=== PATIENT | male | born 1965 | race Caucasian/White ===

== ENCOUNTER 2020-06-05 13:47 | Outpatient (CLI) | payer OTHER, SELFPAY ==
[2020-06-05 15:17] LABS: SARS-CoV-2 Ag Negative (Negative)
== END 2020-06-05 13:48 | disposition home or self-care (01) ==
LOC: CHSLAB 13:50
PROVIDERS: PCP Family Medicine; Visit Provider Family Medicine
DX: Z20.828 Contact with and (suspected) exposure to other viral communicable diseases (principal)
CPT/HCPCS: 87426

== ENCOUNTER 2020-06-10 13:25 | Outpatient (CLI) | payer OTHER, SELFPAY ==
[2020-06-10 14:54] LABS: SARS-CoV-2 Ag Positive (Negative)
== END 2020-06-10 13:26 | disposition home or self-care (01) ==
LOC: CHSLAB 13:27
PROVIDERS: PCP Family Medicine; Visit Provider Family Medicine
DX: U07.1 COVID-19 (principal)
CPT/HCPCS: 87426

== ENCOUNTER 2020-10-21 15:34 | Emergency (ER) | payer OTHER, SELFPAY ==
[2020-10-21] VITALS (7 sets, daily range): BP systolic 169–212; BP diastolic 92–106; PULSE 58–69; RESP 16–23; TEMP 36.4; O2SAT 96–100
--- NOTE | ~2020-10-21 | XR_ITS ---
EXAMINATION: XR chest 2V DATE: 10/21/2020 16:22 INDICATION: Midsternal chest pain radiating to the left arm. TECHNIQUE: PA and lateral views of the chest were obtained. COMPARISON: Chest radiograph dated 08/03/2017 FINDINGS: Streaky and linear opacities at the bilateral lung bases and favor atelectasis over pneumonia. No ple ural effusion or pneumothorax. The cardiomediastinal silhouette is normal. There are bridging osteoph ytes at multiple levels in the spine, consistent with diffuse idiopathic skeletal hyperostosis (DISH) . IMPRESSION: 1. Mild bibasilar streaky and linear opacities and favor atelectasis over pneumonia. Reviewed, dictated and finalized at location A. IMPRESSION: 1. Mild bibasilar streaky and linear opacities and favor atelectasis over pneum onia.
--- NOTE | 2020-10-21 15:39 | ECG_ITS ---
Measurements Intervals [place] Rate: 59 P: 27 [place]: 196 QRS: 10 QRSD: 104 T: 76 QT: 420 QTc: 417 Interpretive Statements SINUS BRADYCARDIA VOLTAGE CRITERIA FOR LVH BORDERLINE ECG Electronically Signed On 10-21-2020 16:09:15 CDT by Gregorio Lees D.O.
[2020-10-21 15:49] LABS: Basophils Absolute Auto 0.1 K/mm3 (0.0-0.1); Basophils Percent Auto 0.9 % (0.2-1.2); Eosinophils Absolute Auto 0.3 K/mm3 (0-0.3); Hematocrit 44.8 % (42.0-52.0); Hemoglobin 15.2 g/dL (14.0-18.0); Immature Granulocyte Absolute 0.04 K/mm3 (0.00-0.031); Immature Granulocyte Percent A 0.5 % (0-0.5); Lymphocytes Absolute Auto 2.21 K/mm3 (0.9-3.2); Lymphocytes Percent Auto 29.7 % (18.3-44.2); Mean Corpuscular HGB Conc 33.9 g/dl (32-36); Mean Corpuscular Volume 88.5 fl (80-100); Mean Platelet Volume 10.1 fl (7.4-10.4); Monocytes Absolute Auto 0.6 K/mm3 (0.1-0.6); Monocytes Percent Auto 7.4 % (2.6-8.5); Neutrophils Absolute Auto 4.3 K/mm3 (1.3-6.7); Neutrophils Percent Auto 57.5 % (45.5-73.1); Platelet Count Result 257 k/mm3 (150-375); Red Blood Count 5.06 M/mm3 (4.6-6.20); Red Cell Distribution Width 14.6 % (11.5-14.5); White Blood Count 7.5 K/mm3 (4.5-10.0)
[2020-10-21 16:00] LABS: INR 0.9; Prothrombin Time 12.5 Seconds (11.1-14.7)
[2020-10-21 16:01] LABS: Anion Gap 7 mmol/L (8-16); Blood Urea Nitrogen 17 mg/dL (9-20); Calcium 8.9 mg/dL (8.4-10.2); Carbon Dioxide 28 mmol/L (22-30); Chloride 104 mmol/L (98-107); Estimated CRCL calculation 89 ml/min; Estimated Glomerular Filt Rate > 60; Glucose 106 mg/dL (75-110); Partial Thromboplastin Time 24.7 SECONDS (22.3-36.8); Potassium 4.1 mmol/L (3.4-5.0); Sodium 139 mmol/L (137-145)
[2020-10-21 16:12] LABS: Troponin I 0.016 ng/mL (0.000-0.034)
--- NOTE | 2020-10-21 16:50 | ED.GENADULT ---
HPI - General Adult General Chief complaint: Recheck/Abnormal Lab/Rx Stated complaint: high blood pressure Time Seen by Provider: 10/21/20 16:29 Source: patient History of Present Illness HPI narrative: Patient is a 55 y/o male complaining intermittent chest pain starting a few days ago. He states that he had en episode 4 days ago and again yesterday. His episode yesterday lasted 4-5 hours and resolved spontaneously. He has no chest pain at this time. His chest pain was located in midsternal area and radiated to left arm. He describes his chest pain as a pressure and he rated it as 7/10 when it occurred. He also has some SOB and dizziness. He contacted his doctor and he was told to come to ED for evaluation. Related Data Home Medications Medication Instructions Recorded Confirmed citalopram mg 10/21/20 10/21/20 irbesartan-hydrochlorothiazide tablet 10/21/20 Allergies Allergy/AdvReac Type Severity Reaction Status Date / Time No Known Allergies Allergy Verified 10/21/20 16:41 Review of Systems Constitutional: Constitutional: Denies chills, Denies fever(s), Denies headache(s) and Denies weakness Eyes: Eyes: Denies blurry vision ENT: Denies headache(s) and Denies neck pain Cardiovascular: Cardiovascular: Reports chest pain and Reports dyspnea Respiratory: Respiratory: Denies cough and Reports dyspnea Gastrointestinal: Gastrointestinal: Denies abdominal pain, Denies diarrhea, Denies nausea and Denies vomiting Genitourinary: Genitourinary: Denies hematuria and Denies dysuria Musculoskeletal: Musculoskeletal: Denies back pain and Denies neck pain Neurologic: Reports dizziness, Denies headache(s) and Denies weakness [facility] Social History Social History Gender identity (if verbalized by the patient): Male Exam Const: General: no acute distress and well developed Orientation/consciousness: oriented to person, oriented to place, oriented to time and patient oriented x3 HENMT: Head: normocephalic Ears: external ears normal General nose exam: Normal external nose present Eyes: General: appearance normal, both eyes and all related structures Conjunctivae: conjunctivae normal Neck: Neck: normal visual inspection and full ROM Chest: Chest palpation & inspection: normal inspection of the chest and no tenderness Resp: Effort & Inspection: normal respiratory effort Auscultation: clear to auscultation bilaterally Cardio: Rate: regular rate Rhythm: regular rhythm GI: GI Palp: No abdominal tenderness and Yes Soft to palpation Skin: General skin exam: normal color and turgor normal Neuro: General: oriented to person, oriented to place, oriented to time and patient oriented x3 Cognition (Neuro): normal cognition Extrem: General: normal to inspection, full ROM and no pedal edema Psych: Appearance: grossly normal Mental Status: mental status grossly normal Affect: normal affect Course Reevaluation(s) Reevaluation #1: Rechecked. Patient feels fine. BP is still high. Advised patient to be admitted for further work up of chest pain. However, patient does not want to be admitted. He wants to leave AMA. He is instructed to return if his symptoms worsen. He is awake, alert and competent to make medical decision for himself. Date: 10/21/20 Time: 21:24 Vital Signs Vital signs: Vital Signs Temperature 36.4 C 10/21/20 15:36 Pulse Rate 63 10/21/20 15:36 Respiratory Rate 17 10/21/20 15:36 Blood Pressure 212/106 H 10/21/20 15:36 Pulse Oximetry 100 10/21/20 15:36 Temperature 36.4 C 10/21/20 15:36 Pulse Rate 69 10/21/20 20:29 Respiratory Rate 18 10/21/20 20:29 Blood Pressure 169/92 H 10/21/20 20:29 Pulse Oximetry 98 10/21/20 20:29 Medical Decision Making Vital Signs Vital Signs: Vital Signs Temperature 36.4 C 10/21/20 15:36 Pulse Rate 63 10/21/20 15:36 Respiratory Rate 17 10/21/20 15:36 Blood Pressure 212/106 H
--- NOTE | 2020-10-21 18:10 | PC.NURSE ---
note lab add ons per Dr. Hawley, Call to lab to add on.
[2020-10-21 18:32] LABS: D Dimer 0.39 ug/mL (<0.48)
[2020-10-21 18:38] LABS: NT Pro B Type Natriuretic Pept 97 PG/ML (5-100)
--- NOTE | 2020-10-21 18:38 | PC.NURSE ---
3 hr troponin sent to lab. Pt continues to deny chest pain. States is tired of waiting. Remains SR without ectopy via monitor.
[2020-10-21 19:08] LABS: Troponin I 0.018 ng/mL (0.000-0.034)
--- NOTE | 2020-10-21 19:11 | PC.NURSE ---
Report to THONG Lopez, to continue care.
[2020-10-21] MEDS: cloNIDine HCL 0.2 MG TABLET PO (20:25)
== END 2020-10-21 21:38 | disposition left against medical advice (07) ==
PROVIDERS: Emergency Medicine; Emergency Provider Emergency Medicine
DX: R07.9 Chest pain, unspecified (principal); I10 Essential (primary) hypertension
CPT/HCPCS: 36415; 71046; 80048; 83880; 84484; 85025; 85380; 85610; 85730; 93005; 99284; A9270

== ENCOUNTER 2021-08-01 13:30 | Emergency (ER) | payer BC, SELFPAY ==
--- NOTE | ~2021-08-01 | XR_ITS ---
EXAMINATION: XR knee LT min 4V DATE: 08/01/2021 14:11 INDICATION: Left knee pain and swelling. TECHNIQUE: 4 views of left knee were obtained. COMPARISON: Left knee radiographs 05/07/2008 FINDINGS: Bone alignment is normal. No fracture. There is mild tricompartmental osteoarthritis charac terized by tiny marginal osteophytes. No joint space narrowing. There is a moderate-sized knee joint effusion. IMPRESSION: 1. Mild left knee osteoarthritis. 2. Moderate-sized left knee joint effusion. Reviewed, dictated and finalized at location A. [employer]CTIONS ATTORNEY
[2021-08-01 13:52] VITALS: BP 167/84; PULSE 81; RESP 18; TEMP 36.6; O2SAT 99
--- NOTE | 2021-08-01 13:54 | ED.LOWEXIN ---
HPI - Extremity Injury (Lower) General Chief Complaint: Extremity Problem,Nontraumatic Stated Complaint: Lt knee pain Time Seen by Provider: 08/01/21 13:54 Source: patient, RN notes reviewed and old records reviewed Mode of arrival: ambulatory Limitations: no limitations History of Present Illness HPI Narrative: 56 year old male who presents to [facility] ambulatory with limping gait with complaints of pain to his left knee since Tuesday with no known injury. Patient reports that he has swollen bump to the lateral aspect of his left knee with pain across his distal knee radiating down the medial aspect of his lower leg. He reports that he is unable to fully bend his knee due to pain, denies any posterior knee pain. noted edema of knee in comparison to right knee. Patient denies any tingling or numbness to left leg with adequate pedal and posterior tibial pulses present to left foot. MD complaint: other (knee pain left) Onset (ago): day(s) (5) Injury: Left: knee Related Data Home Medications Medication Instructions Recorded Confirmed amlodipine 10 mg PO DAILY 08/01/21 08/01/21 bupropion HCl 150 mg PO DAILY 08/01/21 08/01/21 hydralazine 25 mg PO DAILY 08/01/21 08/01/21 isosorbide mononitrate 30 mg PO DAILY 08/01/21 08/01/21 rosuvastatin 5 mg PO DAILY 08/01/21 08/01/21 sertraline 50 mg PO DAILY 08/01/21 08/01/21 testosterone cypionate 200 mg IM WEEKLY 08/01/21 08/01/21 Allergies Allergy/AdvReac Type Severity Reaction Status Date / Time No Known Allergies Allergy Verified 08/01/21 13:43 Review of Systems Review of Systems: CONSTITUTIONAL: Denies fever, chills, or sweats. EYES: Denies visual changes, redness, or discharge. ENT: Denies rhinorrhea, congestion, sore throat, or otalgia. CARDIOVASCULAR: Denies chest pain, palpitations, or edema. RESPIRATORY: Denies cough or dyspnea. GASTROINTESTINAL: Denies abdominal pain, nausea, vomiting, or diarrhea. GENITOURINARY: Denies dysuria or hematuria. SKIN: Denies rash or itching. MUSCULOSKELETAL: Denies back pain, positive for left knee joint pain, or myalgia. NEUROLOGIC: Denies headache, numbness, or weakness. PSYCHIATRIC: Positive for history of anxiety or depression. All systems reviewed & are unremarkable except as noted in HPI and below PMFSH Past Medical History Medical History (Updated 08/01/21 @ 17:50 by Cee Hartman NP) Angina pectoris Hyperlipidemia Hypertension JADA (obstructive sleep apnea) Surgical History Surgical History (Updated 08/01/21 @ 17:51 by Cee Hartman NP) History of mandibular surgery fracture jaw History of medial meniscus repair of right knee Family History Family History (Updated 08/01/21 @ 18:01 by Cee Hartman NP) Father Heart disease Diabetes mellitus Hypertension Social History Social History (Updated 08/01/21 @ 17:51 by Cee Hartman NP) Smoking packs per day: 0.5 Smoking cigarettes per day: 10.0 Years smoked: 40 Smoking pack-years: 20.00 Smoking status: Current every day smoker Tobacco type: cigarettes Gender identity (if verbalized by the patient): Male Comments At time of signature, agree with nursing past medical, surgical, social and family history. There is no relevant family history pertinent to the presenting complaint Exam Narrative: GENERAL: Well-appearing, well-nourished, and in no acute distress. HEAD: Normocephalic, atraumatic. EYES: PERRLA and EOMI. ENT: Nares clear, no rhinorrhea or epistaxis. Mucous membranes moist. TM's normal with good light reflex, throat pink with no lesions or exudates or tonsil swelling NECK: Supple. no lymphadenopathy CHEST: Clear to auscultation. No respiratory distress. no acute dyspnea SAO2 99% on room air HEART: Regular rate and rhythm. No murmur heard. Normal peripheral pulses. ABDOMEN: Soft, nontender, nondistended, normal active bowel sounds. EXTREMITIES: Normal range of motion. No edema. Exception noted to left knee with noted swelling. d
== END 2021-08-01 14:40 | disposition home or self-care (01) ==
PROVIDERS: Emergency Provider Registered Nurse
DX: M25.462 Effusion, left knee (principal); M17.12 Unilateral primary osteoarthritis, left knee; F17.210 Nicotine dependence, cigarettes, uncomplicated; E78.5 Hyperlipidemia, unspecified; I10 Essential (primary) hypertension; G47.33 Obstructive sleep apnea (adult) (pediatric); I20.9 Angina pectoris, unspecified
CPT/HCPCS: 73564; 99213; G0463

== ENCOUNTER 2023-06-14 07:47 | Outpatient (CLI) | payer BC, SELFPAY ==
--- NOTE | 2023-06-14 07:59 | ECG_ITS ---
Measurements Intervals [place] Rate: 74 P: 35 [place]: 179 QRS: 8 QRSD: 117 T: 62 QT: 409 QTc: 454 Interpretive Statements SINUS RHYTHM MODERATE INTRAVENTRICULAR CONDUCTION DELAY [110+ ms QRS DURATION] NONSPECIFIC T-WAVE ABNORMALITY ABNORMAL ECG COMPARED TO ECG 10/21/2020 15:42:43 SINUS RHYTHM NOW PRESENT INTRAVENTRICULAR CONDUCTION DELAY NOW PRESENT T-WAVE ABNORMALITY NOW PRESENT Electronically Signed On 06-14-2023 16:59:38 GAME SHOW HOST by Dimas Blood M.D.
== END 2023-06-14 07:48 | disposition home or self-care (01) ==
LOC: ANHSURGERY 07:54
PROVIDERS: PCP Nurse Practitioner; Visit Provider Surgery
DX: Z01.818 Encounter for other preprocedural examination (principal); R94.31 Abnormal electrocardiogram [ECG] [EKG]; R93.1 Abnormal findings on diagnostic imaging of heart and coronary circulation; I10 Essential (primary) hypertension
CPT/HCPCS: 93005

== ENCOUNTER 2023-06-15 00:50 | Day surgery (SDC) | payer BC, SELFPAY ==
[2023-06-13 14:17] VITALS: BMI 38.8
--- NOTE | 2023-06-13 14:23 | PC.NURSE ---
Report to the Outpatient Waiting Room, entrance under the green pavilion located off [facility], at time _1100 on date 06/15/23_. Planned Procedure Time: _1300_. Time changes happen often and if your time is changed the preop area will call you the afternoon before. - You and your visitor will be asked to self-screen and do not enter if you have any COVID symptoms. - A mask is optional within the hospital at this time. Patients may have clear liquids (water, carbonated beverages, clear teas, apple juice) until 3 hours prior to surgery with a maximum of 20 ounces. - No food from midnight until time of surgery - Infants may have breast milk until 4 hours before surgery, formula 6 hours prior to surgery. - Children will be allowed to drink immediately following surgery. If applicable, please bring a bottle or sippy cup to assist with drinking. Juice, water, soda, and popsicles are readily available. For infants on formula, please bring formula the day of surgery. Pacifiers are allowed. Take the following medications with a SIP of water the morning of surgery: AMLODIPINE, SERTRALINE, BUPROPION DO NOT STOP ANY OF YOUR OTHER PRESCRIPTION MEDICATIONS PRIOR TO SURGERY ?EXCEPT THE FOLLOWING Medications to discontinue per physician ASA 1 WEEK, MUTIVITAMIN 06/13/23 Date to take last dose Please no make-up, nail macanese, hairspray, perfume, deodorant, or body powder the day of surgery. No jewelry (including any body piercings) or valuables the day of surgery, leave them at home. Please take a shower or bath the night before, or the morning of, surgery with an HIBICLENS antibacterial soap. Wear comfortable, loose fitting clothing. Children are encouraged to wear pajamas. - Jewelry must be removed prior to entering the operating room. Rings and piercings that are not removed may be cut off. - The hospital will not accept responsibility for valuables. - Please leave all valuables, including medications, at home the day of surgery. If you are going home after surgery, a licensed driver salesman must drive you home. - NO public transportation without another adult if you receive anesthesia. - We recommend that an adult stay with you for 24 hours following discharge. - We also recommend that you do not drive, make important decision, drink alcoholic beverages, or take any drugs that were not prescribed by your health care provider for at least 24 hours after your discharge time. For Pediatric surgeries, we recommend two adults accompany the child home. Follow any additional instructions given to you from your surgeon. If you or anyone in your household have experienced Covid symptoms in the past week, please notify your surgeon or the nurse liaison at the phone number below for possible testing. Telephone instructions given to _PATIENT__and asked if any additional questions and then verbalized understanding. Patient advised to call surgeon office or pre surgery nurse liaison [phone] if any additional questions.
[2023-06-15] VITALS (9 sets, daily range): BP systolic 151–190; BP diastolic 83–112; PULSE 65–102; RESP 14–20; TEMP 36.1–36.4; O2SAT 95–98
[2023-06-15] MEDS: LACTATED RINGERS 1,000 ML 30 ML IV CONT ×2 (10:45→12:46)
[2023-06-15] MEDS: ACETAMINOPHEN 500 MG TABLET 1000 MG PO (11:00)
[2023-06-15] MEDS: KETOROLAC 15 MG/ML VIAL (*BKC) IV PUSH (11:00)
--- NOTE | 2023-06-15 11:13 | WPDHPUPDATE1 ---
History and Physical Update Update Date/Time: 06/15/23 11:13 History and Physical has been reviewed, including an updated exam of the patient. There are NO changes in the patient's condition. Risks, benefits, and alternatives have been discussed and questions answered. Patient agrees to proceed with procedure.
[2023-06-15] MEDS: ceFAZolin 1 GM/NS 50 ML 1 GM/50 ML BAG IVPB (11:28)
--- NOTE | 2023-06-15 11:48 | WPDANESEPPF ---
Anes - Initial Pre Proc Eval Procedure: Operation Date: 06/15/23 12:00 Proposed Procedures p Open Umbilical Hernia Repair with Mesh - Sapphire Brush MD Date/Time: 06/15/23 11:48 Surgeon: Sapphire Brush MD Pre Op Diagnosis: Umbilical Hernia Patient Data Age: 58 Gender: M Height: 1.83 m Weight: 132.3 kg Last Vital Signs Temp 36.4 C L 06/15/23 11:00 Pulse 65 06/15/23 11:00 Resp 16 06/15/23 11:00 BP 160/88 H 06/15/23 11:00 Pulse Ox 98 06/15/23 11:00 O2 Del Method Room Air 06/15/23 11:00 Allergies Allergy/AdvReac Type Severity Reaction Status Date / Time No Known Allergies Allergy Verified 06/15/23 10:58 Home Medications Medication Instructions Recorded Confirmed Type amlodipine 10 mg tablet 10 mg PO DAILY 08/01/21 06/13/23 History bupropion HCl 150 mg tablet,12 hr 150 mg PO DAILY 08/01/21 06/13/23 History sustained-release hydralazine 25 mg tablet 25 mg PO DAILY 08/01/21 06/13/23 History isosorbide mononitrate 30 mg 30 mg PO DAILY 08/01/21 06/13/23 History tablet,extended release 24 hr rosuvastatin 5 mg tablet 5 mg PO DAILY 08/01/21 06/13/23 History sertraline 50 mg tablet 50 mg PO DAILY 08/01/21 06/13/23 History testosterone cypionate 200 mg/mL 200 mg IM WEEKLY 08/01/21 06/13/23 History intramuscular oil albuterol 90 mcg-budesonide 80 2 inh inhalation .prn 06/07/23 06/13/23 History mcg/actuation HFA aerosol inhaler aspirin 81 mg chewable tablet 81 mg PO DAILY 06/07/23 06/13/23 History multivitamin (One Daily 1 tablet PO DAILY 06/07/23 06/13/23 History Multivitamin tablet) Patient hx anesthesia problems: none Family hx anesthesia problems: none Results Review: All pre-operative results and documents have been reviewed as part of the pre-operative evaluation. [facility] Past Medical History Medical History Angina pectoris History of anxiety History of depression Hyperlipidemia Hypertension JADA (obstructive sleep apnea) Surgical History Surgical History History of mandibular surgery fracture jaw History of medial meniscus repair of right knee Family History Family History Father Heart disease Diabetes mellitus Hypertension Cerebrovascular accident Mother Diabetes mellitus Heart disease Social History Social History Smoking packs per day: 0.5 Smoking cigarettes per day: 10.0 Years smoked: 30 Smoking pack-years: 15.00 Smoking status: Current every day smoker Tobacco type: cigarettes Alcohol intake: never Living arrangements: with family Gender identity (if verbalized by the patient): Male Anes - Eval Final PreProcedure Day of Procedure 06/15/23 11:48 Patient weight: morbidly obese Heart: regular rate and rhythm Lungs: decreased breath sounds Airway: Mallampati scale class II Neurological: alert and oriented Last oral intake: >/= 8 hours ASA classification: III Emergent: no Anesthetic plan: proceed Anesthesia type and monitoring: general LMA and standard monitoring Results Review: All pre-operative results and documents have been reviewed as part of the pre-operative evaluation. Informed Consent: The patient's anesthetic plan and its attendant risks and benefits were discussed with the patient/family/POA. Questions were solicited and answers provided to the satisfaction of the patient/family/POA.
[2023-06-15] MEDS: ceFAZolin 2 GM/D5W 50 ML 2 GM/50 ML BAG IVPB (11:58)
[2023-06-15] MEDS: BUPIVACAINE/EPINEPHRINE 0.5% 50 ML VIAL 30 ML INFILTRATE (12:23)
--- NOTE | 2023-06-15 12:47 | W.PM.PROC2 ---
Procedure Note - Detailed Date of Procedure 06/15/23 Pre-op Diagnosis Incarcerated Umbilical Hernia Post-op Diagnosis Same Procedure Performed repair of incarcerated umbilical hernia with mesh Surgeon Sapphire Brush MD Anesthesia General Indications 58 y/o M c incarcerated umbilical hernia Findings incarcerated umbilical hernia c omentum and adjacent loop of SB Description of Procedure The patient was taken to the operating room placed in the supine position. After adequate induction of general anesthesia, the patient was prepped and draped in the normal sterile fashion. A time-out was then done to verify the patient's identity, as well as the procedure being performed. I began by localizing the area around the umbilicus. I then made a curvilinear incision in the infraumbilical fold. This was taken down to level fascia. I then was able to bluntly dissect around the umbilicus. I then carefully dissected the umbilicus off the underlying hernia sac. Once completely dissected, I excised the hernia sac. I then noted a moderate sized defect measuring approximately 3.5 cm with incarcerated omentum and an adjacent loop of small intestine. I was able to mobilize the incarcerated tissue and reduce it back into the abdominal cavity. This left an approximately 3.5 cm defect. I then placed a 6.4 cm round piece of ventralex mesh in the underlay position. This was noted to have good, wide local coverage of the defect. I then closed this defect primarily with interrupted 0 Ethibond suture over the underlay mesh repair. I then reapproximated the umbilicus to the fascia with a 3 0 Vicryl U-stitch. The subcutaneous tissue was then closed with 3 0 Vicryl suture. The skin was closed with 4 0 Monocryl subcuticular suture. Dermabond was then placed on the wound. The patient tolerated the procedure well was extubated in the operating room postop. She will be transferred to the recovery room in stable condition. Implants 6.4 cm ventralex mesh in underlay position Estimated Blood Loss 5 Drains No Packing No Pathology None sent Complications No immediate complications Condition Stable Disposition PACU [facility] Billing Surgery - Charge Forward: Surgery Billing
[2023-06-15] MEDS: LABETALOL HCL INJ 100 MG/20 ML VIAL IV PUSH ×2 (13:10→13:59)
== END 2023-06-15 14:30 | disposition home or self-care (01) ==
PROVIDERS: PCP Nurse Practitioner; Visit Provider Surgery
PROC: (CPT 49594; principal; 2023-06-15 12:00)
DX: K42.0 Umbilical hernia with obstruction, without gangrene (principal); I10 Essential (primary) hypertension; E78.5 Hyperlipidemia, unspecified; G47.33 Obstructive sleep apnea (adult) (pediatric); F32.A Depression, unspecified; F41.9 Anxiety disorder, unspecified; F17.210 Nicotine dependence, cigarettes, uncomplicated; E66.01 Morbid (severe) obesity due to excess calories; Z68.39 Body mass index [BMI] 39.0-39.9, adult; Z79.82 Long term (current) use of aspirin; Z79.51 Long term (current) use of inhaled steroids; Z79.890 Hormone replacement therapy
CPT/HCPCS: 49594; S2900; 93005; A9270; C1781; J0690; J1100; J1885; J2405; J2704; J3010; J7120

== ENCOUNTER 2023-06-20 13:51 | Emergency (ER) | payer BC, SELFPAY ==
--- NOTE | ~2023-06-20 | CT_ITS ---
EXAMINATION: CT abdomen pelvis w con DATE: 06/20/2023 16:37 INDICATION: Abdomen pain. Umbilical hernia. Recent hernia surgery on Tuesday. TECHNIQUE: Computed tomography (CT) of the abdomen and pelvis was performed with 100 cc Omnipaque 350 intravenous contrast. The dose-length product was 1614.93 mGy-cm. Automated exposure control and ite rative reconstruction technique were employed. COMPARISON: None. FINDINGS: There is a 6 mm right upper lobe nodule, image 1. There is bibasilar atelectasis. Heart siz e normal. No significant pleural or pericardial effusion. Fatty infiltration of the liver. There are gallstones. The spleen, pancreas, adrenal glands are unrem arkable. There are bilateral renal cysts. Nonobstructive bowel gas pattern. There is soft tissue flui d and gas at the umbilicus with extension into the abdomen. This may represent postoperative change, although abscess is not excluded. There is mild adjacent small bowel wall thickening. There are air-f luid levels in the small bowel, likely ileus. There is mild retroperitoneal lymphadenopathy, likely reactive. Small amount of free fluid in the pel vis. There is a nonobstructing 6 mm left renal stone. Moderate lumbar spondylosis. IMPRESSION: 1. Fluid and gas at the umbilicus extending into the abdomen, most likely postoperative change, altho ugh infection is not excluded. There is adjacent small bowel wall thickening with moderately distende d small bowel containing air-fluid levels, likely reactive ileus. 2: Right upper lobe nodule measuring 6 mm. Recommend follow-up low dose CT chest in 6 months. 3: Nonobstructing left nephrolithiasis. Reviewed, dictated and finalized at location A. RO[facility] EM[employer]Y SERVICES MANAGER IMPRESSION: 1. Fluid and gas at the umbilicus extending into the abdomen, most likely posto perative change, although infection is not excluded. There is adjacent small jarrell wel wall thickening with moderately distended small bowel containing air-fluid levels, likely reactive ileus. 2: Right upper lobe nodule measuring 6 mm. Recommend follow-up low dose CT [address] in 6 months. 3: Nonobstructing left nephrolithiasis.
[2023-06-20 14:17] VITALS: BP 176/98; PULSE 76; RESP 18; TEMP 36.6; O2SAT 99
[2023-06-20 15:01] LABS: Basophils Absolute Auto 0.1 K/mm3 (0.0-0.1); Basophils Percent Auto 0.7 % (0.2-1.2); Eosinophils Absolute Auto 0.2 K/mm3 (0-0.3); Eosinophils Percent Auto 2.2 % (0-4.4); Hematocrit 49.3 % (42.0-52.0); Hemoglobin 16.8 g/dL (14.0-18.0); Immature Granulocyte Absolute 0.04 K/mm3 (0.00-0.031); Immature Granulocyte Percent A 0.4 % (0-0.5); Lymphocytes Absolute Auto 1.75 K/mm3 (0.9-3.2); Lymphocytes Percent Auto 19.1 % (18.3-44.2); Mean Corpuscular HGB Conc 34.1 g/dl (32-36); Mean Corpuscular Hemoglobin 30.4 pg (26-34); Mean Corpuscular Volume 89.3 fl (80-100); Mean Platelet Volume 10.5 fl (7.4-10.4); Monocytes Absolute Auto 0.4 K/mm3 (0.1-0.6); Monocytes Percent Auto 4.8 % (2.6-8.5); Neutrophils Absolute Auto 6.7 K/mm3 (1.3-6.7); Neutrophils Percent Auto 72.8 % (45.5-73.1); Platelet Count Result 263 k/mm3 (150-375); Red Blood Count 5.52 M/mm3 (4.6-6.20); Red Cell Distribution Width 13.5 % (11.5-14.5); White Blood Count 9.2 K/mm3 (4.5-10.0)
[2023-06-20 15:11] LABS: Alanine Aminotransferase 44 U/L (6-50); Albumin Level 4.5 g/dL (3.5-5.1); Alkaline Phosphatase 101 U/L (38-126); Anion Gap 11 mmol/L (8-16); Aspartate Amino Transferase 38 U/L (17-59); Bilirubin,Total 0.6 mg/dL (0.2-1.3); Blood Urea Nitrogen 17 mg/dL (9-20); Calcium 9.7 mg/dL (8.4-10.2); Carbon Dioxide 25 mmol/L (22-30); Chloride 104 mmol/L (98-107); Estimated CRCL calculation 78 ml/min; Estimated Glomerular Filt Rate 57; Glucose 116 mg/dL (65-110); Lipase 53 U/L (23-300); Sodium 140 mmol/L (137-145)
--- NOTE | 2023-06-20 16:00 | ED.ABDPAIN ---
HPI - Abdominal Pain General Chief Complaint: Abdominal Pain Stated Complaint: post op abd pain Source: patient Mode of arrival: ambulatory Limitations: no limitations History of Present Illness HPI narrative: Patient is a 58 y/o male who presents to the ED with c/o abdominal pain. Patient reports he underwent surgery Friday 06/15 for umbilical hernia repair with mesh under Dr. Brush. He has had some bruising around his umbilicus and states he noticed a recurrent pain and bulge while urinating yesterday. Denies straining. He then developed pain across his upper abdomen this morning. He took a hydrocodone at 1pm with some improvement but still complains of intermittent waves of pain. He also reports nausea, denies vomiting, diarrhea, constipation, fevers. Patient contacted Dr. Brush's office and was advised to return to the ED if pain continues. Related Data Home Medications Medication Instructions Recorded Confirmed amlodipine 10 mg tablet 10 mg PO DAILY 08/01/21 06/23/23 bupropion HCl 150 mg tablet,12 hr 150 mg PO DAILY 08/01/21 06/23/23 sustained-release hydralazine 25 mg tablet 25 mg PO DAILY 08/01/21 06/23/23 isosorbide mononitrate 30 mg 30 mg PO DAILY 08/01/21 06/23/23 tablet,extended release 24 hr rosuvastatin 5 mg tablet 5 mg PO DAILY 08/01/21 06/23/23 sertraline 50 mg tablet 50 mg PO DAILY 08/01/21 06/23/23 testosterone cypionate 200 mg/mL 200 mg IM WEEKLY 08/01/21 06/23/23 intramuscular oil albuterol 90 mcg-budesonide 80 2 inh inhalation .prn 06/07/23 06/23/23 mcg/actuation HFA aerosol inhaler aspirin 81 mg chewable tablet 81 mg PO DAILY 06/07/23 06/23/23 multivitamin (One Daily 1 tablet PO DAILY 06/07/23 06/23/23 Multivitamin tablet) Allergies Allergy/AdvReac Type Severity Reaction Status Date / Time No Known Allergies Allergy Verified 06/15/23 10:58 Review of Systems Review of Systems: CONSTITUTIONAL: Denies fever, chills, or sweats. GASTROINTESTINAL: See HPI. GENITOURINARY: Denies dysuria or hematuria. All systems reviewed & are unremarkable except as noted in HPI and below PMFSH Past Medical History Medical History (Updated 06/22/23 @ 13:43 by Holly Sykes) Angina pectoris History of anxiety History of depression Hyperlipidemia Hypertension JADA (obstructive sleep apnea) Surgical History Surgical History (Updated 06/22/23 @ 13:43 by Holly Sykes) History of mandibular surgery fracture jaw History of medial meniscus repair of right knee History of umbilical hernia repair repair of incarcerated umbilical hernia with mesh 06/15/23 PDC Family History Family History Father Heart disease Diabetes mellitus Hypertension Cerebrovascular accident Mother Diabetes mellitus Heart disease Social History Social History Smoking packs per day: 0.5 Smoking cigarettes per day: 10.0 Years smoked: 30 Smoking pack-years: 15.00 Smoking status: Current every day smoker Tobacco type: cigarettes Alcohol intake: never Living arrangements: with family Gender identity (if verbalized by the patient): Male Exam Narrative: GENERAL: Well appearing, obese with BMI of 39.2, non-toxic, in no acute distress. HEAD: Normocephalic, atraumatic. RESPIRATORY: Airway patent, respirations nonlabored. Clear to auscultation bilaterally, no rales, rhonchi, wheezing. CARDIOVASCULAR: Regular rate and rhythm without murmurs, rubs, or gallops. ABDOMINAL: Abdomen is somewhat tense, but still soft. Focal tenderness in right upper quadrant and epigastric region. Tenderness surrounding umbilicus with hernia bulge protruding from umbilicus. The sutures appear intact, no evidence of dehiscence. Yellow and purple ecchymosis surrounding the umbilical region. Normoactive BS. MUSCULOSKELETAL: Moves all extremities. No gross deformities. SKIN: Warm, dry, norm
[2023-06-20 16:10] VITALS: BP 177/87; PULSE 83; RESP 18; TEMP 36.6; O2SAT 98
[2023-06-20] MEDS: ONDANSETRON HCL ODT 4 MG TABLET PO (16:14)
--- NOTE | 2023-06-20 18:09 | PC.NURSE ---
Pt to the intake desk and states that he doesn't want to wait any longer. States he is going to rest at home. IV taken out and pt walk out with a steady gait
== END 2023-06-20 18:09 | disposition left against medical advice (07) ==
PROVIDERS: Emergency Medicine; Emergency Provider Physician Assistant; PCP Surgery
DX: R10.9 Unspecified abdominal pain (principal); F41.9 Anxiety disorder, unspecified; F32.A Depression, unspecified; I10 Essential (primary) hypertension; G47.30 Sleep apnea, unspecified
CPT/HCPCS: 36415; 74177; 80053; 83690; 85025; 99284; A9270; Q9967

== ENCOUNTER 2023-06-27 01:25 | Inpatient (IN) | payer BC, SELFPAY ==
[2023-06-27] VITALS (8 sets, daily range): BP systolic 95–146; BP diastolic 55–78; PULSE 78–88; RESP 15–20; TEMP 36.3–37; O2SAT 93–100; BMI 39.3
--- NOTE | ~2023-06-27 | US_ITS ---
US renal BI 06/28/2023 09:27 Procedure: Realtime transabdominal ultrasound of the kidneys and bladder. Indication: Elevated creatinine Comparison: No prior studies for comparison. Findings: Renal echotexture is normal bilaterally without hydronephrosis, contour deforming mass or r enal calculus. The right kidney measures 11.2 cm and left kidney measures 10.8 cm. Bladder within no rmal limits. There is fatty infiltration of the liver. There are left renal cysts, largest measuring 6.4 cm. Impression: 1: Left renal cyst measuring up to 6.4 cm. 2: Fatty infiltration of the liver. Reviewed, dictated and finalized at location L. IAGE RIDER Impression: 1: Left renal cyst measuring up to 6.4 cm. 2: Fatty infiltration of the liver.
--- NOTE | ~2023-06-27 | CT_ITS ---
EXAMINATION: CT abdomen pelvis wo con DATE: 06/27/2023 04:27 INDICATION: Nausea, vomiting, diarrhea. Bowel obstruction, hernia repair on 06/15/2023. TECHNIQUE: Computed tomography (CT) of the abdomen and pelvis was performed with 100 CC Omnipaque 350 intravenous contrast. Automated exposure control and iterative reconstruction technique were employe d. Exam dose: 1385.28 mGy-cm total exam DLP. COMPARISON: 06/20/2023 CT abdomen pelvis FINDINGS: There is mild discoid atelectasis at the lingula and both lower lobes. Normal heart size. No pericardial or pleural effusion. Multiple small stones are noted in the dependent aspect of the gallbladder. No gallbladder wall thick ening or pericholecystic fluid or fat stranding is detected. No bile duct or pancreatic duct dilatati on. No pancreatic mass lesion. Normal splenic size. Normal morphology of the adrenal glands. Approximately 1.5 cm right renal cyst 4.5 and 6.5 cm left renal cysts. Approximately 6 mm lower pole nonobstructing left renal calculus with attenuation of [address] nits. No other urinary tract calculus or hydroureteronephrosis. The urinary bladder is evacuated. Moderate prostate enlargement and mild prostate calcification. Normal caliber of the abdominal aorta. No intraperitoneal or retroperitoneal or pelvic mass lesion or adenopathy or ascites is detected. Diverticulosis of the colon; no CT evidence of diverticulitis. There are air-fluid levels of the small and large bowel, with proximal to mid small bowel dilatation up to 3.5 cm diameter. Again noted is prominent to 4 cm wide, 4.1 cm anteroposterior and 4.5 cm vertical dimension soft tiss ue thickening in the periumbilical region, with some subtle associated subcutaneous gas, which may re present postoperative hematoma, seroma and/or abscess, with some surrounding fat stranding. The keila ns of this soft tissue thickening are better defined in their is not as much fat stranding around thi s area compared to 06/20/2023, suggesting mild interval improvement. IMPRESSION: Minimal improvement of soft tissue thickening, air collections and surrounding fat stran ding in the postoperative periumbilical area Mild small bowel dilatation and air-fluid levels of the small and large bowel, possibly due to postop erative adynamic ileus Cholelithiasis Bilateral renal cysts Nonobstructive 6 mm lower pole left renal calculus Moderate prostate enlargement and calcification Diverticulosis of the colon Reviewed, dictated and finalized at Location [facility]. Reviewed, dictated and finalized at location A. AY CAR REPAIRER IMPRESSION: Minimal improvement of soft tissue thickening, air collections and surrounding fat stranding in the postoperative periumbilical area Mild small bowel dilatation and air-fluid levels of the small and large bowel, possibly due to postoperative adynamic ileus Cholelithiasis Bilateral renal cysts Nonobstructive 6 mm lower pole left renal calculus Moderate prostate enlargement and calcification Diverticulosis of the colon
--- NOTE | ~2023-06-27 | XR_ITS ---
XR abdomen gastric tube insert DATE: 06/27/2023 09:48 INDICATION: NG tube placement TECHNIQUE: Portable AP view on 06/27/2023 at 0907 hours COMPARISON: None FINDINGS: An NG tube is noted with the distal tip extending only approximately 1-2 cm distal to the d iaphragmatic hiatus into the very proximal stomach. Tube advancement is recommended. Bibasilar discoid atelectasis or scarring. Heart size appears within normal range. Degenerative change of the thoracic and lumbar spine. IMPRESSION: NG tube in very proximal aspect of the stomach, only 1-2 cm distal to the diaphragmatic h iatus; tube advancement is recommended Reviewed, dictated and finalized at Location [facility]. Reviewed, dictated and finalized at location A. PHONE DIRECTORY DISTRIBUTOR DRIVER IMPRESSION: NG tube in very proximal aspect of the stomach, only 1-2 cm distal to the diaphragmatic hiatus; tube advancement is recommended
[2023-06-27 03:28] LABS: Basophils Absolute Auto 0.1 K/mm3 (0.0-0.1); Basophils Percent Auto 1.2 % (0.2-1.2); Eosinophils Absolute Auto 0.1 K/mm3 (0-0.3); Hematocrit 49.6 % (42.0-52.0); Hemoglobin 17.1 g/dL (14.0-18.0); Immature Granulocyte Absolute 0.17 K/mm3 (0.00-0.031); Immature Granulocyte Percent A 1.6 % (0-0.5); Lymphocytes Percent Auto 19.7 % (18.3-44.2); Mean Corpuscular HGB Conc 34.5 g/dl (32-36); Mean Corpuscular Hemoglobin 30.1 pg (26-34); Mean Corpuscular Volume 87.3 fl (80-100); Mean Platelet Volume 10.8 fl (7.4-10.4); Monocytes Absolute Auto 1.2 K/mm3 (0.1-0.6); Monocytes Percent Auto 11.3 % (2.6-8.5); Neutrophils Percent Auto 65.2 % (45.5-73.1); Platelet Count Result 365 k/mm3 (150-375); Red Blood Count 5.68 M/mm3 (4.6-6.20); Red Cell Distribution Width 13.2 % (11.5-14.5); White Blood Count 10.7 K/mm3 (4.5-10.0)
[2023-06-27] MEDS: ONDANSETRON INJ 4 MG/2 ML VIAL IV PUSH (03:32)
[2023-06-27 03:50] LABS: Alanine Aminotransferase 82 U/L (6-50); Albumin Level 4.8 g/dL (3.5-5.1); Alkaline Phosphatase 115 U/L (38-126); Anion Gap 24 mmol/L (8-16); Aspartate Amino Transferase 46 U/L (17-59); Bilirubin,Total 0.9 mg/dL (0.2-1.3); Blood Urea Nitrogen 74 mg/dL (9-20); Calcium 9.1 mg/dL (8.4-10.2); Carbon Dioxide 24 mmol/L (22-30); Chloride 85 mmol/L (98-107); Estimated CRCL calculation 16 ml/min; Estimated Glomerular Filt Rate 9; Glucose 151 mg/dL (65-110); Lipase 103 U/L (23-300); Potassium 2.9 mmol/L (3.4-5.0); Sodium 133 mmol/L (137-145)
--- NOTE | 2023-06-27 04:00 | ED.NAVMDI ---
HPI - Nausea/Vomiting/Diarrhea General Chief complaint: Nausea/Vomiting/Diarrhea Stated complaint: n/v/d post op Time Seen by Provider: 06/27/23 03:52 Source: patient and family () Limitations: no limitations History of Present Illness HPI Narrative: 58-year-old male umbilical hernia repair 06/15/[address] Brush presents with nausea vomiting, and diarrhea. Patient noted he was constipated after surgery. He did use stool softener several times this did not produce bowel movement. the son a after surgery, patient was urinating when he looked down and noted that the site was spontaneously protruding. He denies that there is any preceding intra-abdominal pressure such as strain to void or stool. he reached out to his surgeon's partner, Dr. Manning and a follow up appointment was made. patient notes that on Tuesday he did present to the emergency department due to continued abdominal pain and constipation. He notes that he waited in the emergency department for several hours ultimately left without being with seen. he did have a follow-up appointment with Dr. Brush on Tuesday who felt that the protrusion is fluid filled and otherwise benign. Later in the evening on Tuesday patient started having diarrhea. He trialed Imodium AD without any change in his diarrhea. He then started having nausea and vomiting. Related Data Home Medications Medication Instructions Recorded Confirmed amlodipine 10 mg tablet 10 mg PO DAILY 08/01/21 06/27/23 hydralazine 25 mg tablet 50 mg PO TID 08/01/21 06/27/23 isosorbide mononitrate 30 mg 60 mg PO DAILY 08/01/21 06/27/23 tablet,extended release 24 hr sertraline 50 mg tablet 50 mg PO DAILY 08/01/21 06/27/23 albuterol 90 mcg-budesonide 80 2 inh inhalation Q6H PRN Shortness 06/07/23 06/27/23 mcg/actuation HFA aerosol inhaler Of Breath Or Wheezing aspirin 81 mg chewable tablet 81 mg PO DAILY 06/07/23 06/27/23 fluticasone propionate 115 2 puff inhalation Q12H 06/27/23 06/27/23 mcg-salmeterol 21 mcg/actuation HFA inhaler (Advair HFA) furosemide 40 mg tablet 40 mg PO BID 06/27/23 06/27/23 hydrochlorothiazide 25 mg tablet 25 mg PO DAILY 06/27/23 06/27/23 losartan 50 mg tablet 50 mg PO DAILY 06/27/23 06/27/23 pravastatin 80 mg tablet 80 mg PO HS 06/27/23 06/27/23 testosterone cypionate 200 mg/mL 100 mg IM WEEKLY 06/27/23 06/27/23 intramuscular oil Allergies Allergy/AdvReac Type Severity Reaction Status Date / Time No Known Allergies Allergy Verified 06/15/23 10:58 [facility] Past Medical History Medical History (Updated 06/27/23 @ 18:08 by Kisha Peralta MD) Angina pectoris History of anxiety History of depression Hyperlipidemia Hypertension Low testosterone in male JADA (obstructive sleep apnea) Tobacco abuse Surgical History Surgical History History of mandibular surgery fracture jaw History of medial meniscus repair of right knee History of umbilical hernia repair repair of incarcerated umbilical hernia with mesh 06/15/23 PDC Family History Family History Father Heart disease Diabetes mellitus Hypertension Cerebrovascular accident Mother Diabetes mellitus Heart disease Social History Social History (Updated 06/27/23 @ 12:57 by Romain Baugh MD) Social History: He smokes half a pack a day and has done so for about 40 years. No alcohol or drug use. He lives with his and 2 children. They have 2 dogs. He is a full code. He nominates his to be the individual who would make medical decisions for him if he is unable. Smoking packs per day: 0.5 Smoking cigarettes per day: 10.0 Years smoked: 30 Smoking pack-years: 15.00 Smoking status: Former smoker Smoking end date: 06/15/23 Alcohol intake: never Do You Feel Safe in your Home?: Yes Lack of Transportation: No Lack of Food: Never True Current Housing: [facility]
[2023-06-27] MEDS: PROCHLORPERAZINE EDISYLATE 10 MG/2 ML VIAL IV PUSH (05:58)
[2023-06-27] MEDS: SODIUM CHLORIDE 0.9% IV 1,000 ML 999 ML IV CONT (07:43)
[2023-06-27 08:01] LABS: Magnesium 2.3 mg/dL (1.6-2.3)
--- NOTE | 2023-06-27 09:05 | PC.NURSE ---
NG tube inserted without difficulty. Pt tolerated well, placement verified with asculation & Xray
--- NOTE | 2023-06-27 09:10 | PC.NURSE ---
Dr. Marcelo here to see pt. Discussed plan of care. Pt agrreable
--- NOTE | 2023-06-27 09:25 | PM.CNNEP ---
Assessment and Plan Assessment and plan (1) Acute renal failure: Code(s): N17.9 - Acute kidney failure, unspecified Status: Acute Assessment and Plan: the patient has acute kidney injury. His baseline creatinine was almost 1 and now it is above 6. He has had nausea vomiting and some liquid stools over the last few days. He has not been able to take anything in. Most likely he is dehydrated. in addition his blood pressure was low when he came in and generally runs high in the 150-180 range. So relative / actual hypotension is certainly an issue. it is remotely possible that he had some sort of issue with his kidney and now with the high BUN and creatinine it is causing nausea and vomiting but I think it is more likely the former idea. Patient could have obstruction as well so will get a renal ultrasound. Other issues such as glomerulonephritis are less likely Will get urine electrolytes, CPK, renal ultrasound, and give him IV fluids. Because his sodium is 133 will give isotonic fluid. His potassium is low as well. Will give potassium supplements. (2) Nausea and vomiting: Code(s): R11.2 - Nausea with vomiting, unspecified Status: Acute Assessment and Plan: Evaluation is underway. The emergency room doctor suspected obstruction or ileus (3) Hypertension: Code(s): I10 - Essential (primary) hypertension Status: Acute Assessment and Plan: blood pressure is soft. Will hold blood pressure meds (4) Hyperlipidemia: Code(s): E78.5 - Hyperlipidemia, unspecified Status: Acute Assessment and Plan: he is on rosuvastatin (5) JADA (obstructive sleep apnea): Code(s): G47.33 - Obstructive sleep apnea (adult) (pediatric) Status: Acute History of Present Illness Reason for Consult Consult date: 06/27/23 Chief Complaint Chief complaint: Hypokalemia,Acute Renal Failure,Post op Ileus History of Present Illness Narrative: Riley is a very pleasant 58-year-old gentleman who has multiple medical problems including hypertension, hyperlipidemia, depression, anxiety, sleep apnea, angina pectoris. Patient recently had repair of an umbilical hernia. This was performed on the . Over the last few days the patient is developed nausea and vomiting. every time he has something to drink he either throws it up or it goes right through . He has not been eating very well at all. He has been taking his medications. He does have some abdominal discomfort. No bloody stool or bloody vomitus . no fevers or chills. No chest pain or shortness of breath. No swelling. Review of Systems Constitutional: Constitutional: Reports no additional constitutional complaints Eyes: Eyes: Reports no additional eye complaints ENT: Reports system reviewed and no additional complaints, except as documented Cardiovascular: Cardiovascular: Reports no additional cardiovascular complaints Respiratory: Respiratory: Reports no additional respiratory complaints Gastrointestinal: Gastrointestinal: Reports no additional gastrointestinal complaints Genitourinary: Genitourinary: Reports no additional male genitourinary complaints Musculoskeletal: Musculoskeletal: Reports no additional musculoskeletal complaints Integumentary/Breasts: Skin/Breast: Reports system reviewed and no additional complaints, except as docu Neurologic: Reports system reviewed and no additional complaints, except as documented Psychiatric: Psychiatric: Reports no additional psychiatric complaints Endocrine: Endocrine: Reports no additional endocrine complaints PMFSH Past Medical History Medical History Angina pectoris History of anxiety History of depression Hyperlipidemia Hypertension JADA (obstructive sleep apnea) Surgical History Surgical History History of man
--- NOTE | 2023-06-27 09:37 | ADMGEN ---
This patient, Riley Vela, was admitted to 3 [facility] Surg Room 312-01. Patient/family oriented to hospital policies and general routines including ID bracelet, bed and alarms, visiting hours, pain management, procedures, bathroom and other care routines, personal items, smoking policy, room service/diet, and visiting hours. Information on how to activate the Rapid Response Team has been discussed. Patient/Family are encouraged to report perceived risks to care and to ask questions if they do not understand what they are told or what they should do.
[2023-06-27] MEDS: POTASSIUM CHLORIDE INJ 40 MEQ in SODIUM CHLORIDE 0.9% IV 500 ML 130 MEQ IVPB ×2 (10:08→20:27)
[2023-06-27] MEDS: DEXTROSE 5%/0.9% SOD CHL 1,000 ML 125 ML IV CONT ×2 (10:08→20:39)
--- NOTE | 2023-06-27 10:21 | PC.NURSE ---
NG tube advanced up to 65 from 60 per radiologist recommendations. Suction started on low intermittent.
[2023-06-27 11:31] LABS: Lactic Acid Reflex 1.3 mmol/L (0.7-2.0)
[2023-06-27 11:36] LABS: Creatine Kinase 416 U/L (55-170)
--- NOTE | 2023-06-27 11:37 | WPDCN ---
Assessment and Plan Assessment and plan (1) Acute renal failure: Code(s): N17.9 - Acute kidney failure, unspecified Status: Acute Assessment and Plan: Patient has acute renal failure with a creatinine 6.5. This is due to his nausea vomiting and volume contraction and dehydration. Nephrology consult has been ordered. Dr. Marcelo will manage his renal condition and places potassium as it is very low. (2) Ileus: Code(s): K56.7 - Ileus, unspecified Status: Acute Assessment and Plan: Patient had open incarcerated ventral hernia repair 2 weeks ago with mesh. He appears to have a hematoma in the wound but no infection of the hematoma. No evidence of bowel obstruction recurrent hernia. Supportive management with nasogastric decompression. Output from the nasogastric tube is bilious. Keep him NPO for now. Up in chair as much as possible. No acute surgical abdomen at this time (3) Wound hematoma: Status: Acute Assessment and Plan: Periumbilical region has a wound hematoma. Is not currently draining. There is no cellulitis associated with a hematoma at this time. Continue to monitor HPI Data of Consult Date/Time: 06/27/23 11:37 Requesting Physician: Get Baugh MD Primary Care Provider: Molly Barba, NIGHT AUDITOR Consult Narrative Reason for consult: Nausea vomiting and small-bowel ileus Narrative: Riley Vela is a 58 year old male who had a open periumbilical incarcerated ventral hernia repair with Ventralex mesh performed by Dr. Brush June 15, 2022. On June 22, 2022 the patient was seen in the office by Dr. Brush and appeared he likely had a hematoma and informed in the wound. Did not appear to be infected at that time. CT scan was done confirming that the fascia and mesh was intact was reached no recurrent hernia. Patient was having some nausea that time but no emesis. Was sent home from the office the continued to have nausea and vomiting over the course of last several days. He presented to the emergency room last evening with complaints of continued nausea vomiting increasing abdominal distention and pain. CT scan abdomen pelvis was again done showing essentially stable soft tissue mass in the area the hernia repair but no evidence of recurrent hernia. So redness to the skin but quite a bit of bruising. Creatinine was about 6.5 consistent with acute renal failure likely due to volume depletion and dehydration. Nasogastric tube was placed decompress the stomach was admitted to the medical floor for management of acute renal failure. Dr. Marcelo from the nephrology service has evaluated the patient. Patient very low potassium level 2.9 due to his frequent emesis. Dr. Marcelo is ordered potassium replacement. In speaking with the patient's morning he was better with a nasogastric tube in place. The output from the nasogastric tube is bilious. He is on some diffuse anal pain but no severe abdominal pain. He has not had any bowel movements in a few days. White blood cell count just slightly elevated 10,700. He is afebrile. Magnesium level was normal as well. Lactic acid level is normal. Review of Systems Review of Systems: The remainder of the review of systems to include constitutional, HEENT, cardiovascular, respiratory, GI, , integumentary, musculoskeletal, endocrine, immunologic, hematologic, psychiatric, and neurologic are all negative except for which is mentioned above in the HPI. [facility] Past Medical History Medical History Angina pectoris History of anxiety History of depression Hyperlipidemia Hypertension JADA (obstructive sleep apnea) Surgical History Surgical History History of mandibular surgery fracture jaw History of medial meniscus repair of right knee History of umbilical hernia repair repair of incarcerated umbilical
--- NOTE | 2023-06-27 12:41 | PM.IMHP ---
H&P: HPI History of Present Illness Date/Time: 06/27/23 12:41 Chief Complaint: Nausea, vomiting and diarrhea Narrative: 58yo male with HTN, HLD, JADA and tobacco abuse here for nausea, vomiting and diarrhea. Patient noted over the summer increasing bulging from his umbilicus. He was evaluated by General surgery who felt the patient had incarcerated umbilical hernia. Patient underwent repair of incarcerated umbilical hernia with mesh on 06/15/2023. He tolerated the procedure well however he developed worsening abdominal pain. He presented to the emergency room on 06/20/2023 after noting recurrent bulging around the umbilicus while urinating. He denies that he was straining. He states his abdominal pain was significant rating it as 8-9/10. CT of the abdomen pelvis showed fluid and gas at the umbilicus extending into the abdomen most likely postoperative changes. There was adjacent small bowel wall thickening with moderately distended small bowel with air-fluid levels likely ileus. Patient was discharged home and followed up Dr. Brush on 06/22/2023. He was still having constant sharp abdominal pain with nausea. He began to have watery stools. Over the next few days his condition has worsened. He is now having vomiting with bilious emesis. No melena, hematochezia or hematemesis. He is having 7-9 bowel movements per day. He has been trying to drink fluids but is unable to tolerate this due to the nausea and vomiting. There has been no recent travel. No sick contacts. Not exposed to farm animals. No fever, chills, shortness of breath, cough, chest pain, palpitations, dysuria or hematuria. He has had decreasing urine output over the past week. No foamy urine. He has not been able to take his medications because of the nausea and vomiting. He felt dizzy this morning with blurred vision. He presented to the emergency room because of worsening symptoms. In the emergency room, blood pressure was soft at 95/57. White count was 10.7K with hemoglobin 17. Sodium is 133 with potassium 2.9. His serum bicarb was normal but he had an anion gap of 24. His BUN was 74 and creatinine 6.5. His renal function 1 week ago was BUN 17 and creatinine 1.3. Glucose was 151. Lactic acid was 1.3. LFTs are normal except for ALT 82 and total protein of 9. Lipase was normal. Total CK was 416. CT of the abdomen pelvis showed minimal improvement of the soft tissue thickening, air collection and surrounding fat stranding in the postoperative periumbilical area. Continues have a mild small bowel dilatation and air-fluid levels in the small and large bowel consistent with ileus. Cholelithiasis, bilateral renal cysts and non obstructive 6 mm left renal calculi noted. He has moderate prostate enlargement although he denies that he has BPH. Diverticulosis of the colon noted. He was given Zofran and Compazine. Started on IV fluids. Nephrology was consulted. General surgery was consulted as well. NG tube was placed. Patient states his abdominal pain is improved since NG tube is placed. He is actually requesting discharge. He was admitted for further care. Review of Systems Review of Systems: All systems reviewed & are unremarkable except as noted in HPI and below PMFSH Past Medical History Medical History (Updated 06/27/23 @ 13:11 by Romain Baugh MD) Angina pectoris History of anxiety History of depression Hyperlipidemia Hypertension Low testosterone in male JADA (obstructive sleep apnea) Tobacco abuse Surgical History Surgical History History of mandibular surgery fracture jaw History of medial meniscus repair of right knee History of umbilical hernia repair repair of incarcerated umbilical hernia with mesh 06/15/23 PDC Family History Family History Father Heart disease Diabetes mellitus Hypertension Cerebrovascular accident M
[2023-06-27 13:18] LABS: Total Protein Urine Random 63 mg/dL
[2023-06-27 13:28] LABS: Appearance Urine Turbid (Clear); Bacteria Urine None Seen /hpf; Bilirubin Urine 2+ (Negative); Blood Urine Negative (Negative); Color Urine Dark Yellow (Yellow); Glucose Urine UA Negative (Negative); Hyaline Casts Urine Present /lpf; Ketones Urine Trace mg/dL (Negative); Leukocyte Esterase Ur Negative LEU/UL (Negative); Need Manual Microscopic Reviewed; Nitrate Urine Negative (Negative); Non Pathogenic Casts >20; Protein Urine 2+ mg/dL (Negative); RBC Urine 0-2 /hpf (0-2); Squamous Epithelial Cell Urine Many /hpf (Few)
[2023-06-27 13:29] LABS: Add Urine Microscopic? YES
[2023-06-27] MEDS: MORPHINE SULFATE (*CRX) 2 MG/ML INJ IV PUSH (14:04)
[2023-06-27 14:49] LABS: Eosinophil Urine None Seen % (None Seen); Urine Eos QC 2nd Tech Confirmed
[2023-06-27 14:58] LABS: Creatinine Urine 394.1 mg/dL; Sodium Urine Random 23 meq/L; Ur Ttl Prot Creatinine Ratio 0.16 mg/mg (0-0.20)
[2023-06-27 17:10] LABS: SARS-CoV-2 RNA PCR Negative (Negative)
[2023-06-27 18:51] LABS: Anion Gap 17 mmol/L (8-16); Blood Urea Nitrogen 89 mg/dL (9-20); Calcium 8.3 mg/dL (8.4-10.2); Carbon Dioxide 28 mmol/L (22-30); Chloride 89 mmol/L (98-107); Glucose 115 mg/dL (65-110); Sodium 134 mmol/L (137-145)
[2023-06-27 18:56] LABS: Estimated CRCL calculation 18 ml/min; Estimated Glomerular Filt Rate 10
[2023-06-27] MEDS: FLUTICASONE/SALMETEROL 115-21 MCG INHALER 1 PUFF 2 PUFF INHALATION (19:30)
[2023-06-27] MEDS: PANTOPRAZOLE SODIUM IV 40 MG VIAL IV PUSH (20:27)
[2023-06-27] MEDS: SODIUM CHLORIDE 0.9% INJ 10 ML (20:27)
[2023-06-28 06:00] VITALS: BP 117/89; PULSE 79; RESP 18; TEMP 36.9; O2SAT 98
[2023-06-28] MEDS: PANTOPRAZOLE SODIUM IV 40 MG VIAL IV PUSH ×2 (08:02→20:46)
[2023-06-28] MEDS: FLUTICASONE/SALMETEROL 115-21 MCG INHALER 1 PUFF 2 PUFF INHALATION ×2 (08:49→19:35)
[2023-06-28 09:08] LABS: Basophils Absolute Auto 0.1 K/mm3 (0.0-0.1); Basophils Percent Auto 0.9 % (0.2-1.2); Eosinophils Absolute Auto 0.2 K/mm3 (0-0.3); Eosinophils Percent Auto 2.6 % (0-4.4); Hematocrit 46.1 % (42.0-52.0); Hemoglobin 15.7 g/dL (14.0-18.0); Immature Granulocyte Absolute 0.15 K/mm3 (0.00-0.031); Immature Granulocyte Percent A 1.9 % (0-0.5); Lymphocytes Absolute Auto 1.36 K/mm3 (0.9-3.2); Lymphocytes Percent Auto 16.8 % (18.3-44.2); Mean Corpuscular HGB Conc 34.1 g/dl (32-36); Mean Corpuscular Hemoglobin 30.2 pg (26-34); Mean Corpuscular Volume 88.7 fl (80-100); Mean Platelet Volume 10.7 fl (7.4-10.4); Monocytes Absolute Auto 0.7 K/mm3 (0.1-0.6); Monocytes Percent Auto 9.1 % (2.6-8.5); Neutrophils Absolute Auto 5.6 K/mm3 (1.3-6.7); Neutrophils Percent Auto 68.7 % (45.5-73.1); Platelet Count Result 253 k/mm3 (150-375); Red Cell Distribution Width 13.2 % (11.5-14.5); White Blood Count 8.1 K/mm3 (4.5-10.0)
[2023-06-28 09:28] LABS: Albumin Level 3.9 g/dL (3.5-5.1); Anion Gap 14 mmol/L (8-16); Blood Urea Nitrogen 73 mg/dL (9-20); Calcium 8.3 mg/dL (8.4-10.2); Carbon Dioxide 26 mmol/L (22-30); Chloride 96 mmol/L (98-107); Estimated CRCL calculation 34 ml/min; Estimated Glomerular Filt Rate 21; Glucose 119 mg/dL (65-110); Phosphorus 3.5 mg/dL (2.5-4.5); Potassium 2.9 mmol/L (3.4-5.0); Sodium 136 mmol/L (137-145)
[2023-06-28] MEDS: DEXTROSE 5%/0.9% SOD CHL 1,000 ML 125 ML IV CONT ×2 (10:34→20:47)
[2023-06-28 14:00] VITALS: BP 141/80; PULSE 76; RESP 14; TEMP 36.8; O2SAT 100
--- NOTE | 2023-06-28 14:17 | PM.PNGS ---
Progress Note: A&P Assessment and Plan (1) Wound hematoma: Status: Acute Assessment and Plan: doing well, no s/s infection, cont local wound care (2) Ileus: Code(s): K56.7 - Ileus, unspecified Status: Acute Assessment and Plan: improving, +flatus, exam benign, will clamp NG and poss remove later today, start clears once NG out Subjective Subjective Date/Time Seen: 06/28/23 14:17 Interval history: doing better, feels pretty good today, +flatus Review of Systems Review of Systems: All systems reviewed & are unremarkable except as noted in HPI and below Exam Const: General: cooperative, comfortable and no acute distress Resp: Auscultation: clear to auscultation bilaterally Cardio: Rate: regular rate Rhythm: regular rhythm GI: Inspection: normal to inspection and distended GI Palp: Yes abdominal tenderness, Yes Soft to palpation and Yes Tenderness to palpation present (GI) Other: mod inflammation at Objective Data Vital Signs Vital Signs: Vital Signs - 24 hr 06/27/23 19:34 06/27/23 21:27 06/27/23 20:00 Temperature 37.0 C Pulse Rate 88 87 Respiratory Rate 19 18 Blood Pressure 126/63 Pulse Oximetry 94 Oxygen Delivery Room Air 06/28/23 06:00 Temperature 36.9 C Pulse Rate 79 Respiratory Rate 18 Blood Pressure 117/89 Pulse Oximetry 98 Oxygen Delivery Intake/Output Intake/Output: Intake & Output 06/25/23 06/26/23 06/27/23 06/28/23 23:59 23:59 23:59 23:59 Intake Total 2580 1360 Output Total 1050 3000 Balance 1530 -1640 Meds/Results Medications: Active Medications Generic Name Dose Route Start Last Admin Trade Name Freq PRN Reason Stop Dose Admin Acetaminophen 650 mg 06/27/23 08:00 Acetaminophen 325 Mg Tablet PO Q4H PRN Mild Pain (1-3) or Fever Dextrose/Sodium Chloride 1,000 mls @ 125 mls/hr 06/27/23 09:40 06/28/23 10:34 Dextrose 5% Sodium Chloride 0.9% IV CONT 125 mls/hr .Q8H FELIPA Administration Morphine Sulfate 2 mg 06/27/23 13:58 06/27/23 14:04 Morphine Sulfate (*Crx) 2 Mg/Ml Inj IV PUSH 2 mg Q4H PRN Administration Pain Rated 7-10 Ondansetron HCl 4 mg 06/27/23 08:00 Ondansetron Inj 4 Mg/2 Ml Vial IV PUSH Q4H PRN Nausea Pantoprazole Sodium 40 mg 06/27/23 21:00 06/28/23 08:02 Pantoprazole Sodium Iv 40 Mg Vial IV PUSH 40 mg Q12HR FELIPA Administration Fluticasone/Salmeterol 2 puff 06/27/23 13:15 06/28/23 08:49 Fluticasone/Salmeterol 115-21 Mcg Inhaler 1 Puff INHALATION 2 puff Q12H FELIPA Administration Radiology Results: ITS Impressions Abdomen/Pelvis CT 06/27/23 09:02 IMPRESSION: Minimal improvement of soft tissue thickening, air collections and surrounding fat stranding in the postoperative periumbilical area Mild small bowel dilatation and air-fluid levels of the small and large bowel, possibly due to postoperative adynamic ileus Cholelithiasis Bilateral renal cysts Nonobstructive 6 mm lower pole left renal calculus Moderate prostate enlargement and calcification Diverticulosis of the colon Abdomen X-Ray 06/27/23 09:56 IMPRESSION: NG tube in very proximal aspect of the stomach, only 1-2 cm distal to the diaphragmatic hiatus; tube advancement is recommended Renal Ultrasound 06/28/23 09:29 Impression: 1: Left renal cyst measuring up to 6.4 cm. 2: Fatty infiltration of the liver. Labs Labs: Laboratory Results - last 24 hr 06/27/23 06/27/23 06/27/23 12:51 16:26 18:25 WBC RBC Hgb Hct MCV MCH MCHC RDW Plt Count MPV Immature Gran % (Auto) Neut % (Auto) Lymph % (Auto) [place] % (Auto) Eos % (Auto) Baso % (Auto) Lymph # (Auto) [place] # (Auto) Eos # (Auto) Baso # (Auto) Abs Immat Gran (auto) Absolute Neuts (auto) Absolute Nucleated RBC Nucleated RBC % Sodium 134 L Potassium 3.0 L Chloride 89 L Carbon Dioxide
--- NOTE | 2023-06-28 15:27 | PM.PNNEP ---
Progress Note: A&P Assessment and Plan (1) Acute renal failure: Code(s): N17.9 - Acute kidney failure, unspecified Status: Acute Assessment and Plan: the patient has acute kidney injury. His baseline creatinine was almost 1 and now it is above 6. renal ultrasound shows no hydronephrosis. CK not very high at 416 urine electrolytes are pre renal most likely this is prerenal azotemia due to relatively low blood pressure and dehydration. At this point will continue IV fluids. He is getting normal saline at 125 an hour. (2) Nausea and vomiting: Code(s): R11.2 - Nausea with vomiting, unspecified Status: Acute Assessment and Plan: this is improved. (3) Hypertension: Code(s): I10 - Essential (primary) hypertension Status: Acute Assessment and Plan: blood pressure is soft. holding blood pressure meds (4) Hyperlipidemia: Code(s): E78.5 - Hyperlipidemia, unspecified Status: Acute Assessment and Plan: he is on rosuvastatin (5) JADA (obstructive sleep apnea): Code(s): G47.33 - Obstructive sleep apnea (adult) (pediatric) Status: Acute Subjective Date/time seen: 06/28/23 15:27 Interval history: Riley is feeling much better today. Belly is less distended. He is passing a tiny bit of gas. NG tube is clamped off. He is making lots of urine Review of Systems Cardiovascular: Cardiovascular: Reports no additional cardiovascular complaints Respiratory: Respiratory: Reports no additional respiratory complaints Gastrointestinal: Gastrointestinal: Reports no additional gastrointestinal complaints Genitourinary: Genitourinary: Reports no additional male genitourinary complaints Exam Narrative: WDWN in NAD skin no rash head ncat lungs clear cor reg no rub abd BS+ somewhat distended but less so, nontender and soft ext no edema. Objective Data Vital Signs Vital Signs: Vital Signs - 24 hr 06/27/23 19:34 06/27/23 21:27 06/27/23 20:00 Temperature 98.6 F Pulse Rate 88 87 Respiratory Rate 19 18 Blood Pressure 126/63 Pulse Oximetry 94 Oxygen Delivery Room Air 06/28/23 06:00 Temperature 98.4 F Pulse Rate 79 Respiratory Rate 18 Blood Pressure 117/89 Pulse Oximetry 98 Oxygen Delivery Intake/Output Intake/Output: Intake & Output 12/23/23 12/24/23 12/25/23 12/26/23 23:59 23:59 23:59 23:59 Intake Total 2580 1360 Output Total 1050 3000 Balance 1530 -1640 Meds/Results Medications: Active Medications Generic Name Dose Route Start Last Admin Trade Name Freq PRN Reason Stop Dose Admin Acetaminophen 650 mg 06/27/23 08:00 Acetaminophen 325 Mg Tablet PO Q4H PRN Mild Pain (1-3) or Fever Dextrose/Sodium Chloride 1,000 mls @ 125 mls/hr 06/27/23 09:40 06/28/23 10:34 Dextrose 5% Sodium Chloride 0.9% IV CONT 125 mls/hr .Q8H FELIPA Administration Morphine Sulfate 2 mg 06/27/23 13:58 06/27/23 14:04 Morphine Sulfate (*Crx) 2 Mg/Ml Inj IV PUSH 2 mg Q4H PRN Administration Pain Rated 7-10 Ondansetron HCl 4 mg 06/27/23 08:00 Ondansetron Inj 4 Mg/2 Ml Vial IV PUSH Q4H PRN Nausea Pantoprazole Sodium 40 mg 06/27/23 21:00 06/28/23 08:02 Pantoprazole Sodium Iv 40 Mg Vial IV PUSH 40 mg Q12HR FELIPA Administration Fluticasone/Salmeterol 2 puff 06/27/23 13:15 06/28/23 08:49 Fluticasone/Salmeterol 115-21 Mcg Inhaler 1 Puff INHALATION 2 puff Q12H FELIPA Administration Radiology Results: ITS Impressions Abdomen/Pelvis CT 06/27/23 09:02 IMPRESSION: Minimal improvement of soft tissue thickening, air collections and surrounding fat stranding in the postoperative periumbilical area Mild small bowel dilatation and air-fluid levels of the small and large bowel, possibly due to postoperative adynamic ileus Cholelithiasis Bilateral renal cysts Nonobstructive 6 mm lower pole left renal calculus Moderate prostate e
--- NOTE | 2023-06-28 15:39 | PM.IMPN ---
Progress Note: A&P Assessment and Plan (1) Acute renal failure: Code(s): N17.9 - Acute kidney failure, unspecified Status: Acute Assessment and Plan: Patient presents the emergency room complaints of nausea, vomiting and diarrhea. Had a recent umbilical hernia surgery. He has had significant fluid loss as noted by acute kidney injury with the hemoconcentration. His acute kidney injury is related to dehydration complicated by Lasix and hydrochlorothiazide use. He is also on losartan at home. He has been started IV fluids. Renal ultrasound showing left renal cyst otherwise normal ultrasound. Renal function is returning to normal. Good urine output. Appreciate nephrology input. Continue to monitor and trend renal function, electrolytes urine output. (2) Ileus: Code(s): K56.7 - Ileus, unspecified Status: Acute Assessment and Plan: CT scan of the abdomen and pelvis on admission showing mild small bowel dilatation and air-fluid levels in the small and large bowel. NG tube was placed low wall intermittent suction. Patient had symptomatic improvement. NG tube clamped at this time. He is tolerating clear liquid diet. Appreciate General surgery input. Remove NG tube later today or tomorrow (3) Hypokalemia: Code(s): E87.6 - Hypokalemia Status: Acute Assessment and Plan: Potassium was low this was replaced. Continue to monitor and replace potassium as needed. (4) Nausea and vomiting: Code(s): R11.2 - Nausea with vomiting, unspecified Status: Acute Assessment and Plan: Related to the ileus. Symptoms resolving. (5) Diarrhea: Code(s): R19.7 - Diarrhea, unspecified Status: Acute Assessment and Plan: Patient is having diarrhea prior to admission but this has since stopped. No bowel movement since admission. COVID negative. continue to monitor. (6) Umbilical hernia: Code(s): K42.9 - Umbilical hernia without obstruction or gangrene Status: Acute Assessment and Plan: s/p repair. Appreciate General surgery input. (7) Wound hematoma: Status: Acute Assessment and Plan: Periumbilcal area soft. Hematome resolving (8) JADA (obstructive sleep apnea): Code(s): G47.33 - Obstructive sleep apnea (adult) (pediatric) Status: Acute Assessment and Plan: CPAP on hold so as not to exacerbate his ileus. Resume CPAP when able (9) Hypertension: Code(s): I10 - Essential (primary) hypertension Status: Acute Assessment and Plan: Patient's blood pressure was reviewed on 06/28 Blood pressure remains well controlled. Will continue to monitor Resume home medications as blood pressure requires Hydralazine available as needed (10) Hyperlipidemia: Code(s): E78.5 - Hyperlipidemia, unspecified Status: Acute Assessment and Plan: Stable. LFTs noted. Resume Pravachol when able (11) Tobacco abuse: Code(s): Z72.0 - Tobacco use Status: Acute Assessment and Plan: Patient was educated about the benefits of smoking cessation. Plan DVT prophylaxis -SCDs Code status -full Subjective Date/time seen: 06/28/23 15:39 Interval history: 58yo male with HTN, HLD, JADA and tobacco abuse here for nausea, vomiting and diarrhea.??He recently had umbilical hernia repair 06/15/23. Patient feels 'much better'. Minimal abdominal pain. NG tube has been clamped and he is tolerating this so far. No nausea or vomiting. He has been given some clear liquids and has taken this without symptoms or worsening pain. Passing flatus but no bowel movements. He is voiding well. Exam Narrative: AF 98.4 117/89 79 19 98% ra Gen - NARD HEENT - NGT clamped Chest - CTA bilaterally, nml RR CV - RRR S1/S2 Abd - Soft, less distended, +BS. Soft distended area overlying the umbilicus with ecchymosis. Ext - No pedal edema Psych - Nm
[2023-06-28 19:36] VITALS: PULSE 85; RESP 16
[2023-06-28 19:40] VITALS: PULSE 65; RESP 16; O2SAT 96
[2023-06-28] MEDS: SODIUM CHLORIDE 0.9% INJ 10 ML (20:47)
[2023-06-28 21:08] VITALS: BP 149/64; PULSE 73; RESP 18; TEMP 36.8; O2SAT 95
[2023-06-29] MEDS: DEXTROSE 5%/0.9% SOD CHL 1,000 ML 125 ML IV CONT ×2 (05:11→09:42)
[2023-06-29 06:00] VITALS: BP 156/75; PULSE 78; RESP 18; TEMP 36.6; O2SAT 98
[2023-06-29] MEDS: PANTOPRAZOLE SODIUM IV 40 MG VIAL IV PUSH (09:42)
[2023-06-29] MEDS: FLUTICASONE/SALMETEROL 115-21 MCG INHALER 1 PUFF 2 PUFF INHALATION (09:48)
[2023-06-29 09:49] VITALS: PULSE 74; RESP 20
[2023-06-29 10:53] LABS: Toxigenic C. Diff NEGATIVE (NEGATIVE)
--- NOTE | 2023-06-29 10:59 | PM.PNGS ---
Progress Note: A&P Assessment and Plan (1) Wound hematoma: Status: Acute Assessment and Plan: Wound hematoma appears stable. No signs of an infection or overlying skin necrosis. Overall pain and swelling improved. Continue to monitor. When patient is discharged he will follow-up with Dr. Brush as scheduled in 4 weeks. (2) Ileus: Code(s): K56.7 - Ileus, unspecified Status: Acute Assessment and Plan: Continues to improve. Bowels are functioning. Diarrhea seems to be improving. NG removed yesterday and he is tolerating clear liquids. Advance diet as tolerated. Once he is tolerating solids, then he could be discharged from a surgical standpoint once he is medically stable. (3) Acute renal failure: Code(s): N17.9 - Acute kidney failure, unspecified Status: Acute Assessment and Plan: Improving. Labs have not been drawn today, discussed with nurse. Nephrology following. Plan I have discussed the patient's case and plan of care with Dr. Brush. Subjective Subjective Date/Time Seen: 06/29/23 10:59 Patient reports: voiding w/o difficulty (Making good urine) Interval history: This is a 58-year-old who underwent a repair of incarcerated umbilical hernia with mesh on 06/15/2023. He was discharged and otherwise doing well, but return to the ER with complaints of nausea, vomiting, and diarrhea. He was admitted for an ileus, wounds hematoma, and acute renal failure. He was treated with NG tube decompression and bowel rest. His NG tube was removed yesterday. Chart reviewed. Acute renal failure slowly improving. Patient is seen today. He is tolerating clear liquids and still complaining of some diarrhea. He had 2 loose stools today, but feels his stool seems a little more formed this morning. C diff negative. Denies any abdominal pain, nausea or vomiting. Bloating improved. Reports at the periumbilical swelling and pain has improved significantly. Review of Systems Review of Systems: All systems reviewed & are unremarkable except as noted in HPI and below Exam Const: General: comfortable and no acute distress GI: Inspection: incision (incision dry and intact) and other (mildly distended) Auscultation: normal bowel sounds Other: Abdomen is mildly distended. Minimal tenderness near the periumbilical incision. Periumbilical incision dry and glue intact with surrounding ecchymosis and swelling with protrusion of the umbilicus. Reportedly tenderness in this area has significantly improved per patient. There is firmness at umbilicus and slightly above that is likely a hematoma. No erythema or warmth. No drainage. No evidence of recurrent hernia. Objective Data Vital Signs Vital Signs: Vital Signs - 24 hr 06/28/23 14:00 06/28/23 19:36 06/28/23 19:40 Temperature 98.3 F Pulse Rate 76 85 65 Respiratory Rate 14 16 16 Blood Pressure 141/80 H Pulse Oximetry 100 96 Oxygen Delivery Room Air 06/28/23 21:08 06/28/23 20:00 06/29/23 06:00 Temperature 98.2 F 97.9 F Pulse Rate 73 78 Respiratory Rate 18 18 Blood Pressure 149/64 H 156/75 H Pulse Oximetry 95 98 Oxygen Delivery Room Air 06/29/23 09:49 Temperature Pulse Rate 74 Respiratory Rate 20 Blood Pressure Pulse Oximetry Oxygen Delivery Intake/Output Intake/Output: Intake & Output 06/26/23 06/27/23 06/28/23 06/29/23 23:59 23:59 23:59 23:59 Intake Total 2580 2660 2530 Output Total 1050 3550 Balance 1530 -890 2530 Meds/Results Medications: Active Medications Generic Name Dose Route Start Last Admin Trade Name Freq PRN Reason Stop Dose Admin Acetaminophen 650 mg 06/27/23 08:00 Acetaminophen 325 Mg Tablet PO Q4H PRN Mild Pain (1-3) or Fever Hydralazine HCl 10 mg 06/28/23 15:46 Hydralazine Hcl 20 Mg/Ml Vial IV PUSH Q8H PRN Blood Pressure - High Dextrose/Sodium Chloride 1,000 mls @ 125 mls/hr 06/27/23 09:40 06/29/23 09:42 Dextrose 5% Sodium C
--- NOTE | 2023-06-29 13:47 | PM.IMPN ---
Progress Note: A&P Assessment and Plan (1) Acute renal failure: Code(s): N17.9 - Acute kidney failure, unspecified Status: Acute Assessment and Plan: Patient presents the emergency room complaints of nausea, vomiting and diarrhea. Had a recent umbilical hernia surgery. He has had significant fluid loss as noted by acute kidney injury with the hemoconcentration. His acute kidney injury is related to dehydration complicated by Lasix and hydrochlorothiazide use. He is also on losartan at home. He has been started IV fluids. Renal ultrasound showing left renal cyst otherwise normal ultrasound. Renal function is returning to normal. Good urine output. Appreciate nephrology input. Continue to monitor and trend renal function, electrolytes urine output. Creatinine pending today 06/29 (2) Ileus: Code(s): K56.7 - Ileus, unspecified Status: Acute Assessment and Plan: CT scan of the abdomen and pelvis on admission showing mild small bowel dilatation and air-fluid levels in the small and large bowel. NG tube was placed low wall intermittent suction. Patient had symptomatic improvement. NG tube clamped at this time. He is tolerating clear liquid diet. Appreciate General surgery input. NG tube out 06/28 Okay for discharge per surgery 06/29 (3) Hypokalemia: Code(s): E87.6 - Hypokalemia Status: Acute Assessment and Plan: Potassium was low this was replaced. Continue to monitor and replace potassium as needed. (4) Nausea and vomiting: Code(s): R11.2 - Nausea with vomiting, unspecified Status: Acute Assessment and Plan: Related to the ileus. Symptoms resolving. (5) Diarrhea: Code(s): R19.7 - Diarrhea, unspecified Status: Acute Assessment and Plan: Patient is having diarrhea prior to admission but this has since stopped. No bowel movement since admission. COVID negative. continue to monitor. (6) Umbilical hernia: Code(s): K42.9 - Umbilical hernia without obstruction or gangrene Status: Acute Assessment and Plan: s/p repair. Appreciate General surgery input. (7) Wound hematoma: Status: Acute Assessment and Plan: Periumbilical area soft. Hematoma resolving (8) JADA (obstructive sleep apnea): Code(s): G47.33 - Obstructive sleep apnea (adult) (pediatric) Status: Acute Assessment and Plan: CPAP on hold so as not to exacerbate his ileus. Resume CPAP when able (9) Hypertension: Code(s): I10 - Essential (primary) hypertension Status: Acute Assessment and Plan: Patient's blood pressure was reviewed on 06/29 Blood pressure remains well controlled. Will continue to monitor Resume home medications as blood pressure requires Hydralazine available as needed (10) Hyperlipidemia: Code(s): E78.5 - Hyperlipidemia, unspecified Status: Acute Assessment and Plan: Stable. LFTs noted. Resume Pravachol when able (11) Tobacco abuse: Code(s): Z72.0 - Tobacco use Status: Acute Assessment and Plan: Patient was educated about the benefits of smoking cessation. Plan DVT prophylaxis -SCDs Code status -full Subjective Date/time seen: 06/29/23 13:47 Interval history: 58yo male with HTN, HLD, JADA and tobacco abuse here for nausea, vomiting and diarrhea.??He recently had umbilical hernia repair 06/15/23. No overnight events noted. No chest pain or shortness of breath. No nausea, vomiting or diarrhea. No fevers or chills. Review of Systems Review of Systems: 12 point review of systems was assessed and was negative except as noted in the HPI Exam Narrative: General: No acute distress, alert and oriented per baseline HEENT: Atraumatic, normocephalic, mucous membranes moist CV: Regular rate and rhythm, S1, S2 Lungs: Clear to auscultation bilaterally, no rales or crackles
[2023-06-29 14:00] VITALS: BP 158/77; PULSE 84; RESP 18; TEMP 35.7; O2SAT 99
[2023-06-29 14:00] LABS: Alanine Aminotransferase 41 U/L (6-50); Albumin Level 3.9 g/dL (3.5-5.1); Alkaline Phosphatase 94 U/L (38-126); Anion Gap 10 mmol/L (8-16); Aspartate Amino Transferase 41 U/L (17-59); Bilirubin,Total 0.5 mg/dL (0.2-1.3); Blood Urea Nitrogen 34 mg/dL (9-20); Calcium 8.3 mg/dL (8.4-10.2); Carbon Dioxide 25 mmol/L (22-30); Chloride 104 mmol/L (98-107); Estimated CRCL calculation 60 ml/min; Estimated Glomerular Filt Rate 42; Glucose 100 mg/dL (65-110); Magnesium 2.4 mg/dL (1.6-2.3); Phosphorus 2.3 mg/dL (2.5-4.5); Potassium 3.1 mmol/L (3.4-5.0); Sodium 139 mmol/L (137-145)
[2023-06-29 14:38] LABS: Hemoglobin A1C 5.6 % (<5.7)
--- NOTE | 2023-06-29 15:28 | PM.DS ---
DS: Admitting Diagnosis Discharge Date 06/29/23 Admitting Diagnosis nvd DS: Discharge Diagnosis Discharge Diagnosis (1) Acute renal failure: Code(s): N17.9 - Acute kidney failure, unspecified Status: Acute Assessment and Plan: Patient presents the emergency room complaints of nausea, vomiting and diarrhea. Had a recent umbilical hernia surgery. He has had significant fluid loss as noted by acute kidney injury with the hemoconcentration. His acute kidney injury is related to dehydration complicated by Lasix and hydrochlorothiazide use. He is also on losartan at home. He has been started IV fluids. Renal ultrasound showing left renal cyst otherwise normal ultrasound. Renal function is returning to normal. Good urine output. Appreciate nephrology input. Continue to monitor and trend renal function, electrolytes urine output. Creatinine pending today 06/29 (2) Ileus: Code(s): K56.7 - Ileus, unspecified Status: Acute Assessment and Plan: CT scan of the abdomen and pelvis on admission showing mild small bowel dilatation and air-fluid levels in the small and large bowel. NG tube was placed low wall intermittent suction. Patient had symptomatic improvement. NG tube clamped at this time. He is tolerating clear liquid diet. Appreciate General surgery input. NG tube out 06/28 Okay for discharge per surgery 06/29 (3) Hypokalemia: Code(s): E87.6 - Hypokalemia Status: Acute Assessment and Plan: Potassium was low this was replaced. Continue to monitor and replace potassium as needed. (4) Nausea and vomiting: Code(s): R11.2 - Nausea with vomiting, unspecified Status: Acute Assessment and Plan: Related to the ileus. Symptoms resolving. (5) Diarrhea: Code(s): R19.7 - Diarrhea, unspecified Status: Acute Assessment and Plan: Patient is having diarrhea prior to admission but this has since stopped. No bowel movement since admission. COVID negative. continue to monitor. (6) Umbilical hernia: Code(s): K42.9 - Umbilical hernia without obstruction or gangrene Status: Acute Assessment and Plan: s/p repair. Appreciate General surgery input. (7) Wound hematoma: Status: Acute Assessment and Plan: Periumbilical area soft. Hematoma resolving (8) JADA (obstructive sleep apnea): Code(s): G47.33 - Obstructive sleep apnea (adult) (pediatric) Status: Acute Assessment and Plan: CPAP on hold so as not to exacerbate his ileus. Resume CPAP when able (9) Hypertension: Code(s): I10 - Essential (primary) hypertension Status: Acute Assessment and Plan: Patient's blood pressure was reviewed on 06/29 Blood pressure remains well controlled. Will continue to monitor Resume home medications as blood pressure requires Hydralazine available as needed (10) Hyperlipidemia: Code(s): E78.5 - Hyperlipidemia, unspecified Status: Acute Assessment and Plan: Stable. LFTs noted. Resume Pravachol when able (11) Tobacco abuse: Code(s): Z72.0 - Tobacco use Status: Acute Assessment and Plan: Patient was educated about the benefits of smoking cessation. Plan DVT prophylaxis -SCDs Code status -full DS: Summary Hospital Course Hospital Course: 58yo male with HTN, HLD, JADA and tobacco abuse here for nausea, vomiting and diarrhea.??He recently had umbilical hernia repair 06/15/23. Patient presents the emergency room complaints of nausea, vomiting and diarrhea.? Had a recent umbilical hernia surgery.? He has had significant fluid loss as noted by acute kidney injury with the hemoconcentration.? His acute kidney injury is related to dehydration complicated by Lasix and hydrochlorothiazide use.? He is also on losartan at home.? He has been started IV fluids.? Renal ultrasound showing left renal cyst otherwise nor
== END 2023-06-29 17:00 | disposition home or self-care (01) | DRG 394 ==
LOC: ANHED 04:15 → ANH3MEDSUR 08:55
PROVIDERS: Internal Medicine Nephrology; Admitting Provider Internal Medicine; Emergency Provider Student in an Organized Health Care Education/Training Program; PCP Nurse Practitioner; Visit Provider Student in an Organized Health Care Education/Training Program
DX: K91.89 Other postprocedural complications and disorders of digestive system (principal); K56.0 Paralytic ileus; N17.8 Other acute kidney failure; K91.870 Postprocedural hematoma of a digestive system organ or structure following a digestive system procedure; E86.0 Dehydration; T50.1X5A Adverse effect of loop [high-ceiling] diuretics, initial encounter; T50.2X5A Adverse effect of carbonic-anhydrase inhibitors, benzothiadiazides and other diuretics, initial encounter; Z20.822 Contact with and (suspected) exposure to COVID-19; E78.5 Hyperlipidemia, unspecified; I10 Essential (primary) hypertension; G47.33 Obstructive sleep apnea (adult) (pediatric); E66.9 Obesity, unspecified; E87.6 Hypokalemia; F17.210 Nicotine dependence, cigarettes, uncomplicated; Z68.39 Body mass index [BMI] 39.0-39.9, adult
CPT/HCPCS: 36415; 74176; 76775; 80048; 80053; 80069; 80076; 81001; 82550; 82570; 83036; 83605; 83690; 83735; 84156; 84300; 85025; 85999; 87045; 87086; 87088; 87427; 87449; 87493; 87635; 94640; 96374; 96375; 99285; A9270; C9113; J0780; J2270; J2405; J3480; J7030; J7040; J7042

== ENCOUNTER 2023-07-02 10:56 | Outpatient (CLI) | payer BC, SELFPAY ==
[2023-07-02 11:38] LABS: Anion Gap 8 mmol/L (8-16); Blood Urea Nitrogen 17 mg/dL (9-20); Calcium 8.7 mg/dL (8.4-10.2); Carbon Dioxide 27 mmol/L (22-30); Chloride 105 mmol/L (98-107); Estimated Glomerular Filt Rate > 60; Glucose 110 mg/dL (65-110); Potassium 3.9 mmol/L (3.4-5.0); Sodium 140 mmol/L (137-145)
== END 2023-07-02 10:57 | disposition home or self-care (01) ==
LOC: ANHLAB 10:57
PROVIDERS: PCP Nurse Practitioner; Visit Provider Student in an Organized Health Care Education/Training Program
DX: N17.9 Acute kidney failure, unspecified (principal)
CPT/HCPCS: 36415; 80048